=== PATIENT | female | born 1965 | race Caucasian/White ===

== ENCOUNTER 2021-11-26 11:51 | Emergency (ER) | payer MEDICAID ==
[~2021-11-26] VITALS: Ht 157.5 cm; Wt 62.6 kg
[2021-11-26 12:15] VITALS: BP_SYST 106
== END 2021-11-26 12:05 | disposition left against medical advice (07) ==
LOC: SED 11:51
DX: R06.02 Shortness of breath (principal); R05.9 Cough, unspecified; Z53.21 Procedure and treatment not carried out due to patient leaving prior to being seen by health care provider